=== PATIENT | male | born 1955 | race Caucasian/White ===

== ENCOUNTER 2021-12-28 20:17 | Emergency (ER) | payer MEDICARE, BC, SELFPAY ==
[2021-12-28 20:20] VITALS: BP 145/96; PULSE 79; RESP 16; O2SAT 95; BMI 29.2
--- NOTE | 2021-12-28 20:32 | ED.GENADULT ---
HPI - General Adult General Chief complaint: Urogenital Problems, Male <Bertha Bray MD - Last Filed: 12/28/21 21:15> Stated complaint: bowel/urinary problem <Bertha Bray MD - Last Filed: 12/28/21 21:15> Time Seen by Provider: 12/28/21 20:21 <Bertha Bray MD - Last Filed: 12/28/21 21:15> History of Present Illness HPI narrative: 56-year-old male coming in today with gross hematuria. He states that he had a cystoscopy earlier today at [facility] secondary to microscopic hematuria. He is on Xarelto which he stopped 48 hours ago. He was at home after the procedure doing well when all the sudden he started having john blood come out of his penis. He denies any abdominal pain, but states that after the procedure his penis is sore. Denies any systemic symptoms. He is not dizzy or lightheaded. No chest pain or shortness of breath. He was told that the cystoscopy was clear and that no biopsies were taken. <Bertha Bray MD - Last Filed: 12/28/21 21:15> Related Data Home medications: Home Medications Medication Instructions Recorded Confirmed lisinopril 10 mg tablet mg 12/28/21 metoprolol succinate 25 mg mg PO 12/28/21 tablet,extended release 24 hr rivaroxaban 20 mg tablet (Xarelto) mg 12/28/21 rosuvastatin 40 mg tablet mg 12/28/21 tadalafil 5 mg tablet mg 12/28/21 tamsulosin 0.4 mg capsule mg PO 12/28/21 <Bertha Bray MD - Last Filed: 12/28/21 21:15> Allergies/adverse reactions: Allergies Allergy/AdvReac Type Severity Reaction Status Date / Time No Known Drug Allergies Allergy Verified 12/28/21 20:23 <Bertha Bray MD - Last Filed: 12/28/21 21:15> Review of Systems Status of ROS: Reports: 10 or more systems reviewed and unremarkable except as noted in History and below <Bertha Bray MD - Last Filed: 12/28/21 21:15> Exam Narrative: Exam Narrative: Overweight, well-developed patient in no acute distress. Alert and oriented. Answers questions appropriately. Mood and affect are appropriate. Thoughts are goal oriented and rational. No tangential or magical thinking noted. Patient speaks in full sentences without needing to catch his breath. HEENT: Normocephalic atraumatic. Pupils are equally round reactive to light. Extraocular muscles are intact. Conjunctivae are moist without any icterus noted. Cardiovascular: Heart is regular rhythm, slightly tachycardic. S1 and S2 are present without any murmurs. Lungs: Clear to auscultation bilaterally no wheezes rhonchi or rales are appreciated. Abdomen: Soft and nontender nondistended with normal bowel sounds. Extremities: Bilateral lower extremities are without edema. Skin: Well perfused without any obvious rashes. : Blood at the tip of the penis in the urethral meatus. <Bertha Bray MD - Last Filed: 12/28/21 21:15> Const: Vital Signs, click to edit/add: Vital Signs - 24 hr 12/28/21 20:20 Pulse Rate [Left P ulse Oximeter] 79 Respiratory Rate 16 Blood Pressure [Le ft Upper Arm] 145/96 H Pulse Oximetry 95 Oxygen Delivery Me thod Room Air <Bertha Bray MD - Last Filed: 12/28/21 21:15> Vital Signs, click to edit/add: Vital Signs - 24 hr 12/28/21 20:20 Pulse Rate [Left P ulse Oximeter] 79 Respiratory Rate 16 Blood Pressure [Le ft Upper Arm] 145/96 H Pulse Oximetry 95 Oxygen Delivery Me thod Room Air <Cr Valdes MD - Last Filed: 12/28/21 23:03> Course Course Hospital Course: IV established. Rivera was placed with continuous bladder irrigation. Care will be transferred to oncoming physician. <Bertha Bray MD - Last Filed: 12/28/21 21:15> Reevaluation(s) Reevaluation #1: 9:30 PM: patient was signed out to Dr. Lucio MARTÍNEZ, please see Dr. Bray's note for HPI and physical exam. Patient is to receive continous bladder irrigation with 3 liter bag to clear the urine. patient is doing well. <Cr Valdes MD - Last Filed: 12/28/21 23:03> Reevaluation #2: Rivera catheter clamped at this time. patient doing well. <Cr Valdes MD - Last Filed: 12/28/21 23:03> Time: 22:00 <Cr Valdes MD - Last Filed: 12/28/21 23:03> Reevaluation #3: Patient is doing well, urine has cleared, plan would be to discharge. Patient is to return back to [place] on Saturday, plan to keep Rivera catheter in place overnight, appointment was made at [facility] to see Dr. Keturah MARTÍNEZ at 11:30 AM tomorrow. All questions answered. <Cr Valdes MD - Last Filed: 12/28/21 23:03> Time: 23:01 <Cr Valdes MD - Last Filed: 12/28/21 23:03> Vital Signs Vital signs: Initial Vital Signs Pulse Rate 79 12/28/21 20:20 Pulse Rhythm 12/28/21 20:20 Pulse Strength 3+ Normal 12/28/21 20:20 Respiratory Rate 16 12/28/21 20:20 Blood Pressure 145/96 H 12/28/21 20:20 Blood Pressure Mean 112 12/28/21 20:20 Pulse Oximetry 95 12/28/21 20:20 Oxygen Delivery Method 12/28/21 20:20 Vital Signs Pulse Rate 79 12/28/21 20:20 Respiratory Rate 16 12/28/21 20:20 Blood Pressure 145/96 H 12/28/21 20:20 Pulse Oximetry 95 12/28/21 20:20 Oxygen Delivery Method 12/28/21 20:20 Pulse Rate 79 12/28/21 20:20 Respiratory Rate 16 12/28/21 20:20 Blood Pressure 145/96 H 12/28/21 20:20 Pulse Oximetry 95 12/28/21 20:20 Oxygen Delivery Method 12/28/21 20:20 <Bertha Bray MD - Last Filed: 12/28/21 21:15> Initial Vital Signs Pulse Rate 79 12/28/21 20:20 Pulse Rhythm 12/28/21 20:20 Pulse Strength 3+ Normal 12/28/21 20:20 Respiratory Rate 16 12/28/21 20:20 Blood Pressure 145/96 H 12/28/21 20:20 Blood Pressure Mean 112 12/28/21 20:20 Pulse Oximetry 95 12/28/21 20:20 Oxygen Delivery Method 12/28/21 20:20 Vital Signs Pulse Rate 79 12/28/21 20:20 Respiratory Rate 16 12/28/21 20:20 Blood Pressure 145/96 H 12/28/21 20:20 Pulse Oximetry 95 12/28/21 20:20 Oxygen Delivery Method 12/28/21 20:20 Pulse Rate 79 12/28/21 20:20 Respiratory Rate 16 12/28/21 20:20 Blood Pressure 145/96 H 12/28/21 20:20 Pulse Oximetry 95 12/28/21 20:20 Oxygen Delivery Method 12/28/21 20:20 <Cr Valdes MD - Last Filed: 12/28/21 23:03> Medical Decision Making Lab Data Labs: Lab Results 12/28/21 12/28/21 Range/Units 20:22 20:22 WBC 8.59 (4.50-11.00) K/uL RBC 4.71 (4.30-5.90) m/uL Hgb 15.1 (13.5-17.5) gm/dL Hct 45.0 (37.0-53.0) % MCV 96 (80-100) fL MCH 32 (26-34) pg MCHC 34 (32-36) gm/dL RDW Coeff of Sesar 12.5 (11.5-15.5) % Plt Count 161 (140-440) K/uL Neut % (Auto) 52.3 (42.0-72.0) % Lymph % (Auto) 35.2 (20-44) % [place] % (Auto) 10.6 (0.0-11.0) % Eos % (Auto) 1.4 (0.0-7.0) % Baso % (Auto) 0.3 (0.0-3.0) % Neut # (Auto) 4.49 (1.7-7.0) K/uL Lymph # (Auto) 3.02 H (0.90-2.90) K/uL [place] # (Auto) 0.90 (0.00-0.90) K/UL Eos # (Auto) 0.12 (0.00-0.50) K/uL Baso # (Auto) 0.03 (0.00-0.30) K/uL Abs Immat Gran (auto) 0.02 (0.00-0.30) K/uL Sodium 138 (135-149) mmol/L Potassium 3.5 L (3.6-5.1) mmol/L Chloride 100 (96-114) mmol/L Carbon Dioxide 28 (20-32) mmol/L BUN 15 (7-30) mg/dL Creatinine 0.9 (0.5-1.5) mg/dL Estimated Creat Clear 78.68 Estimated GFR 94 ml/min Glucose 94 (60-115) mg/dL Calcium 9.1 (8.4-10.6) mg/dL <Bertha Bray MD - Last Filed: 12/28/21 21:15> Lab Results 12/28/21 12/28/21 Range/Units 20:22 20:22 WBC 8.59 (4.50-11.00) K/uL RBC 4.71 (4.30-5.90) m/uL Hgb 15.1 (13.5-17.5) gm/dL Hct 45.0 (37.0-53.0) % MCV 96 (80-100) fL MCH 32 (26-34) pg MCHC 34 (32-36) gm/dL RDW Coeff of Sesar 12.5 (11.5-15.5) % Plt Count 161 (140-440) K/uL Neut % (Auto) 52.3 (42.0-72.0) % Lymph % (Auto) 35.2 (20-44) % [place] % (Auto) 10.6 (0.0-11.0) % Eos % (Auto) 1.4 (0.0-7.0) % Baso % (Auto) 0.3 (0.0-3.0) % Neut # (Auto) 4.49 (1.7-7.0) K/uL Lymph # (Auto) 3.02 H (0.90-2.90) K/uL [place] # (Auto) 0.90 (0.00-0.90) K/UL Eos # (Auto) 0.12 (0.00-0.50) K/uL Baso # (Auto) 0.03 (0.00-0.30) K/uL Abs Immat Gran (auto) 0.02 (0.00-0.30) K/uL Sodium 138 (135-149) mmol/L Potassium 3.5 L (3.6-5.1) mmol/L Chloride 100 (96-114) mmol/L Carbon Dioxide 28 (20-32) mmol/L BUN 15 (7-30) mg/dL Creatinine 0.9 (0.5-1.5) mg/dL Estimated Creat Clear 78.68 Estimated GFR 94 ml/min Glucose 94 (60-115) mg/dL Calcium 9.1 (8.4-10.6) mg/dL <Cr Valdes MD - Last Filed: 12/28/21 23:03> Discharge Plan Discharge Clinical Impression: Rivera catheter in place, Gross hematuria, H/O cystoscopy <Bertha Bray MD - Last Filed: 12/28/21 21:15> Patient Disposition: Home, Self-Care <Bertha Bray MD - Last Filed: 12/28/21 21:15> Condition: Improved <Bertha Bray MD - Last Filed: 12/28/21 21:15> Instructions: Rivera Catheter Placement and Care (ED) <Bertha Bray MD - Last Filed: 12/28/21 21:15> Additional Instructions: To follow up tomorrow at [facility] at 11:30 AM for ED follow up and rivera catheter removal. Appointment is made with Dr. Keturah MARTÍNEZ. <Bertha Bray MD - Last Filed: 12/28/21 21:15> Prescriptions: No Action tamsulosin 0.4 mg capsule PO lisinopril 10 mg tablet metoprolol succinate 25 mg tablet extended release 24 hr PO rosuvastatin 40 mg tablet tadalafil 5 mg tablet Label Comments: take 1 tablet by mouth once daily Xarelto 20 mg tablet <Bertha Bray MD - Last Filed: 12/28/21 21:15> Stand Alone Forms: My[facility] Info Instructions <Bertha Bray MD - Last Filed: 12/28/21 21:15>
[2021-12-28 20:34] LABS: Basophils Absolute Auto 0.03 K/uL (0.00-0.30); Basophils Percent Auto 0.3 % (0.0-3.0); Eosinophils Absolute Auto 0.12 K/uL (0.00-0.50); Eosinophils Percent Auto 1.4 % (0.0-7.0); Hemoglobin* 15.1 gm/dL (13.5-17.5); Immature Granulocytes Abs Auto 0.02 K/uL (0.00-0.30); Lymphocytes Absolute Auto 3.02 K/uL (0.90-2.90); Lymphocytes Percent Auto 35.2 % (20-44); Mean Corpuscular HGB Conc 34 gm/dL (32-36); Mean Corpuscular Hemoglobin 32 pg (26-34); Mean Corpuscular Volume 96 fL (80-100); Monocytes Percent Auto 10.6 % (0.0-11.0); Neutrophils Absolute Auto 4.49 K/uL (1.7-7.0); Neutrophils Percent Auto 52.3 % (42.0-72.0); Platelet Count* 161 K/uL (140-440); RDW Coefficient of Variation % 12.5 % (11.5-15.5); Red Blood Count 4.71 m/uL (4.30-5.90); White Blood Count* 8.59 K/uL (4.50-11.00)
[2021-12-28 20:38] LABS: Slide Review Reflex No
[2021-12-28 20:46] LABS: Chloride* 100 mmol/L (96-114); Potassium* 3.5 mmol/L (3.6-5.1); Sodium* 138 mmol/L (135-149)
[2021-12-28 20:48] LABS: Creatinine* 0.9 mg/dL (0.5-1.5); Est. Creatinine Clearance* 78.68; Estimated Glomerular Filt Rate 94 ml/min
[2021-12-28 20:49] LABS: Blood Urea Nitrogen* 15 mg/dL (7-30); Calcium* 9.1 mg/dL (8.4-10.6); Carbon Dioxide* 28 mmol/L (20-32); Glucose* 94 mg/dL (60-115)
[2021-12-28] MEDS: HYDROmorphone 0.5 mg/0.5 ml inj IVP (20:53)
[2021-12-28 21:00] VITALS: BP 121/75; PULSE 76; RESP 16; O2SAT 97
--- NOTE | 2021-12-28 21:10 | ED.NURSE ---
pt states he did not stop coumadin until 2d ago, Updated.
[2021-12-28] MEDS: ACETAMINOPHEN 500 MG TABLET 1000 MG PO (21:25)
[2021-12-28 21:30] VITALS: BP 115/82; PULSE 79; RESP 16; O2SAT 97
--- NOTE | 2021-12-28 21:58 | ED.NURSE ---
catheter insertion, pain meds given prior, lidojet lube used, pt stated pain but no resistance on insertion. bloody with clots 150cc output, 3L NS bag flushed through, clear urine output half way throughout infusion. clamped at 2155 per MD Valdes request.
[2021-12-28 22:15] VITALS: BP 123/77; PULSE 75; RESP 16; O2SAT 98
[2021-12-28 23:21] VITALS: BP 108/72; PULSE 81; RESP 16
== END 2021-12-28 23:21 | disposition home or self-care (01) ==
PROVIDERS: Family Medicine; Emergency Provider Student in an Organized Health Care Education/Training Program
DX: R31.9 Hematuria, unspecified (principal)
CPT/HCPCS: 36415; 51702; 80048; 85025; 99283; 99284; A9270; J1170

== ENCOUNTER 2022-05-17 09:58 | Emergency (ER) | payer MEDICARE, BC, SELFPAY ==
[2022-05-17] VITALS (24 sets, daily range): BP systolic 110–162; BP diastolic 61–101; PULSE 44–64; RESP 16; TEMP 36.2–36.3; O2SAT 95–98; BMI 28.5
--- NOTE | 2022-05-17 10:34 | CRLHL7_ITS ---
For Patients: As a result of the Cures Act, medical imaging exams and procedure reports are released immediately into your electronic medical record. You may view this report before your referring provider. If you have questions, please contact your health care provider. INDICATION: CHEST PAIN TECHNIQUE: Chest 2 views COMPARISON: None FINDINGS: Postop changes CABG. Cardiomegaly. Mild tortuosity aorta. Fracture deformities of the left 7th, 8th and 9th ribs, chronic. No pulmonary edema, pleural effusion, infiltrate or pneumothorax. No fracture. IMPRESSION: No CHF. Dictated by Jefferson Arevalo MD @ 05/17/2022 11:01:23 AM (Electronically Signed)
[2022-05-17] MEDS: ASPIRIN 81 MG TAB.CHEW 324 MG PO (10:48)
[2022-05-17] MEDS: 0.9 % SODIUM CHLORIDE 1000 ml 1,000 ML IV (10:49)
[2022-05-17 10:53] LABS: Basophils Absolute Auto 0.03 K/uL (0.00-0.30); Basophils Percent Auto 0.4 % (0.0-3.0); Eosinophils Absolute Auto 0.23 K/uL (0.00-0.50); Eosinophils Percent Auto 2.7 % (0.0-7.0); Hematocrit 44.4 % (37.0-53.0); Hemoglobin* 14.8 gm/dL (13.5-17.5); Immature Granulocytes Abs Auto 0.01 K/uL (0.00-0.30); Immature Granulocytes Pct Auto 0.1 %; Lymphocytes Absolute Auto 3.24 K/uL (0.90-2.90); Lymphocytes Percent Auto 38.5 % (20-44); Mean Corpuscular HGB Conc 33 gm/dL (32-36); Mean Corpuscular Hemoglobin 32 pg (26-34); Mean Corpuscular Volume 96 fL (80-100); Monocytes Percent Auto 9.7 % (0.0-11.0); Neutrophils Absolute Auto 4.09 K/uL (1.7-7.0); Neutrophils Percent Auto 48.6 % (42.0-72.0); Platelet Count* 168 K/uL (140-440); RDW Coefficient of Variation % 12.5 % (11.5-15.5); Red Blood Count 4.62 m/uL (4.30-5.90); White Blood Count* 8.42 K/uL (4.50-11.00)
[2022-05-17 10:54] LABS: Slide Review Reflex No
[2022-05-17 11:24] LABS: Troponin, Point-of-Care* 0.03 ng/ml (0.01-0.04)
[2022-05-17 11:31] LABS: INR 1.15 (0.91-1.10); Partial Thromboplastin Time* 31 Seconds (23-33); Prothrombin Time 15.4 Seconds
[2022-05-17 11:36] LABS: Albumin* 4.4 g/dL (3.3-5.0)
[2022-05-17 11:37] LABS: D Dimer Quantitative* < 0.27 ug/ml (0.00-0.50)
[2022-05-17 11:39] LABS: Alkaline Phosphatase* 50 U/L (40-150); Aspartate Amino Transferase* 51 U/L (12-35); Bilirubin Direct* 0.2 mg/dL (0.0-0.5); Bilirubin Total* 1.2 mg/dL (0.1-1.5); Chloride* 104 mmol/L (96-114); Potassium* 3.7 mmol/L (3.6-5.1); Sodium* 137 mmol/L (135-149); Total Protein* 6.7 g/dL (6.0-8.3)
[2022-05-17 11:40] LABS: Alanine Aminotransferase* 30 U/L (4-50)
[2022-05-17 11:42] LABS: Blood Urea Nitrogen* 15 mg/dL (7-30); Carbon Dioxide* 24 mmol/L (20-32); Creatinine* 0.8 mg/dL (0.5-1.5); Estimated Glomerular Filt Rate 96 ml/min; Glucose* 92 mg/dL (60-115)
[2022-05-17 11:43] LABS: Calcium* 8.3 mg/dL (8.4-10.6)
[2022-05-17 11:44] LABS: Amphetamine Screen Urine Negative (Negative); Barbiturate Screen Urine Negative (Negative); Benzodiazepines Screen Urine Negative (Negative); Cannabinoid Screen Urine Negative (Negative); Cocaine Screen Urine Negative (Negative); Methadone Screen Urine Negative (Negative); Methamphetamines Screen Urine Negative (Negative); Opiate Screen Urine Negative (Negative); Oxycodone Screen Urine Negative (Negative); Phencyclidine Screen Urine Negative (Negative); Tricyclic Antidepressant Urine Negative (Negative)
[2022-05-17 11:49] LABS: NT Pro B Type NatriureticPept* 262 pg/mL
[2022-05-17 12:24] LABS: PCR FLU A Negative PCR FLU A (Negative); PCR FLU B Negative PCR FLU B (Negative); PCR RSV Negative PCR RSV (Negative)
[2022-05-17 12:26] LABS: SARS PCR* Negative SARS-CoV-2 (Negative)
[2022-05-17 12:35] LABS: Troponin, Point-of-Care* 0.01 ng/ml (0.01-0.04)
--- NOTE | 2022-05-17 13:47 | ED.CHESTPAIN ---
HPI - Chest Pain General Date Seen: 05/17/22 Chief Complaint: Chest Pain Stated Complaint: Chest pain, elevated HR Time Seen by Provider: 05/17/22 10:34 Source: patient and family Mode of arrival: ambulatory Limitations: no limitations History of Present Illness HPI narrative: Patient is a 67-year-old gentleman who presents here with his brother for evaluation of chest discomfort, he has specific episodes he says are tied exactly 2 PVCs that he has rule of pain, and what he describes is angina after he has the PVC. He does not have any pain in between these episodes, and denies any nausea vomiting radiation of discomfort, he has never before had that said this is a more recent phenomena. He does describe to me almost total body jolts when he has these. Feels like there is almost a light electrical pulse going through his body when he has a PVC. He has a history of atrial fibrillation with previous ablation in tells me scheduled to have another ablation at at [facility] coming up. Has a history of a previous coronary artery bypass grafting x5 done in 2000 and then a follow-up stent placed in 2012 in [place]. He is visiting here in [place] today. He did not take any nitroglycerin for the discomfort, he is taking his normal medications as directed has not missed any doses. MD complaint: chest pain Pertinent past history: coronary artery disease, [employer] and CABG Onset (ago): hour(s) Timing of current episode: episodic Prior episodes: No Onset: during rest Pain location: substernal and left chest Pain radiation: none Severity: mild Quality: shooting Relieving factors: nothing Exacerbating factors: nothing Treatment prior to arrival: none Related Data Home Medications Medication Instructions Recorded Confirmed lisinopril 10 mg tablet 10 mg PO DAILY 12/28/21 05/17/22 metoprolol succinate 25 mg 25 mg PO DAILY 12/28/21 05/17/22 tablet,extended release 24 hr rivaroxaban 20 mg tablet (Xarelto) 20 mg PO Q24H 12/28/21 05/17/22 rosuvastatin 40 mg tablet 40 mg PO DAILY 12/28/21 05/17/22 tadalafil 5 mg tablet 5 mg PO DAILY 12/28/21 05/17/22 albuterol sulfate 90 mcg/actuation 2 puff inhalation Q6H PRN 12/29/21 05/17/22 aerosol inhaler cyanocobalamin (vitamin B-12) 500 500 mcg PO QDAY 12/29/21 05/17/22 mcg tablet dofetilide 500 mcg capsule 500 mcg PO BID 12/29/21 05/17/22 fluticasone 250 mcg-salmeterol 50 1 inh inhalation BID PRN 12/29/21 05/17/22 mcg/dose blistr powdr for inhalation ipratropium bromide 17 1 puff inhalation QID PRN 12/29/21 05/17/22 mcg/actuation HFA aerosol inhaler (Atrovent HFA) magnesium oxide,aspartate,citr 400 mg PO DAILY 12/29/21 05/17/22 omega-3 acid ethyl esters 1 gram 1 cap PO DAILY 12/29/21 05/17/22 capsule omeprazole 20 mg capsule,delayed 20 mg PO QDAY 12/29/21 05/17/22 release tamsulosin 0.4 mg capsule 0.4 mg PO DAILY 12/29/21 05/17/22 tiotropium bromide 2.5 2 puff inhalation QAM PRN 12/29/21 05/17/22 mcg/actuation mist for inhalation (Spiriva Respimat) Allergies Allergy/AdvReac Type Severity Reaction Status Date / Time No Known Drug Allergies Allergy Verified 05/17/22 10:12 Review of Systems Status of ROS Reports: 10 or more systems reviewed and unremarkable except as noted in History and below [facility] Social History Smoking Status: Former smoker Do you use any of these nicotine containing products: None How often do you have a drink containing alcohol: never AUDIT-C Alcohol total score: 0 Non-prescribed substance use: denies use Exam Narrative Exam Narrative: Patient is speaking normally, no problem with slurring words, oriented x3. Head eyes ears nose and throat exam show equal pupils, no scleral icterus, extraocular muscles are normal, no facial droop, speech is normal, trachea normal and midline. Thyroid normal midline palpable not enlarged. Chest shows symmetrical rise bilaterally, normal auscultation with no wheezes, no increased work of breathing, no overt bruising or lesions seen, no tenderness is noted on auscultation. Heart sounds normal with no S3-S4 no murmurs clicks or gallops. Abdomen shows no obvious masses or hepatosplenomegaly, no organomegaly, bowel sounds are normal in all quadrants. No tenderness is noted also in all quadrants. Upper and lower extremities show normal power, normal range of motion, pulses are normal, sensations normal, fine motor movements are normal, pelvis is stable to rocking. Cervical spine shows normal range of motion, and palpably not tender. Thoracic spine shows normal range of motion, and palpably not tender, lumbar spine shows no tenderness to palpation percussion and is otherwise normal range of motion. Skin shows no rashes, petechiae or eccymosis. Const Vital Signs, click to edit/add: Vital Signs - 24 hr 05/17/22 10:04 05/17/22 10:09 05/17/22 10:11 Temperature 97.3 F L Pulse Rate 63 60 Pulse Rate [Right Pulse Oximeter] 64 Respiratory Rate 16 Blood Pressure 141/78 H Blood Pressure [Right Upper Arm] 162/83 H Pulse Oximetry 98 98 97 Oxygen Delivery Method Room Air 05/17/22 10:30 05/17/22 10:32 05/17/22 11:00 Temperature Pulse Rate 59 L 56 L 52 L Pulse Rate [Right Pulse Oximeter] Respiratory Rate Blood Pressure 125/74 Blood Pressure [Right Upper Arm] Pulse Oximetry 97 97 96 Oxygen Delivery Method 05/17/22 11:02 05/17/22 11:30 05/17/22 11:32 Temperature Pulse Rate 53 L 50 L 53 L Pulse Rate [Right Pulse Oximeter] Respiratory Rate Blood Pressure 124/71 142/101 H Blood Pressure [Right Upper Arm] Pulse Oximetry 96 97 97 Oxygen Delivery Method 05/17/22 12:00 05/17/22 12:02 05/17/22 12:03 Temperature Pulse Rate 54 L 51 L 52 L Pulse Rate [Right Pulse Oximeter] Respiratory Rate Blood Pressure 141/75 H Blood Pressure [Right Upper Arm] Pulse Oximetry 97 96 97 Oxygen Delivery Method 05/17/22 12:32 05/17/22 12:33 05/17/22 13:00 Temperature Pulse Rate 51 L 56 L 51 L Pulse Rate [Right Pulse Oximeter] Respiratory Rate Blood Pressure 132/71 Blood Pressure [Right Upper Arm] Pulse Oximetry 97 96 96 Oxygen Delivery Method Room Air 05/17/22 13:02 05/17/22 13:30 05/17/22 13:32 Temperature Pulse Rate 50 L 46 L 45 L Pulse Rate [Right Pulse Oximeter] Respiratory Rate 16 Blood Pressure 127/72 110/61 Blood Pressure [Right Upper Arm] Pulse Oximetry 96 95 96 Oxygen Delivery Method 05/17/22 13:33 05/17/22 14:00 05/17/22 14:02 Temperature Pulse Rate 44 L 48 L 49 L Pulse Rate [Right Pulse Oximeter] Respiratory Rate Blood Pressure 128/63 Blood Pressure [Right Upper Arm] Pulse Oximetry 96 95 95 Oxygen Delivery Method 05/17/22 14:03 05/17/22 14:30 05/17/22 14:31 Temperature 97.1 F L Pulse Rate 51 L 45 L 45 L Pulse Rate [Right Pulse Oximeter] Respiratory Rate 16 Blood Pressure 121/72 Blood Pressure [Right Upper Arm] Pulse Oximetry 97 97 96 Oxygen Delivery Method Course Course Hospital Course: Patient is seen and assessed, while I was there he had a number of PVCs with no jolting of his body, he did have this once when I was doing the ultrasound of his heart, I think these are PVCs, I do not detect a pacemaker on his chest x-ray and he does not give me a history this. Believe a lot of this may be due to anxiety although there is pre-existing coronary artery disease as documented above. His 1st 2 troponins were negative we will do a 3rd is EKGs look unchanged or otherwise normal. He feels overall better, reviewed his [place] chart do not see anything out of the ordinary with this. But would recommend him following up with his cardiology group. Ultrasound of his heart is done with the primary indication of chest pain, this is done with for views, xiphoid, parasternal long axis parasternal short axis and four-chamber view. No evidence of pericardial effusion overall motion was good, Assessment: Negative point of care ultrasound Reevaluation(s) Reevaluation #1: Appears is done well he has had no further episodes of pain he does have episodes of the little jolting which have decreased in frequency since he came in, his EKG remains really unchanged, with no acute changes, and there is no change of his troponin, given the above facts he would like to go home I have already kept him he says longer than I should have, but I explained to him that we just really needed to rule out with the pre-existing history of coronary artery disease. I think fact is he should follow up with [facility] if he has ongoing problem symptoms which we gone over in detail. Time: 15:29 Vital Signs Vital signs: Initial Vital Signs Temperature 97.3 F L 05/17/22 10:04 Temperature Source Temporal Artery Scan 05/17/22 10:04 Pulse Rate 64 05/17/22 10:04 Respiratory Rate 16 05/17/22 10:04 Blood Pressure 162/83 H 05/17/22 10:04 Blood Pressure Mean 109 05/17/22 10:04 Blood Pressure Position Supine 05/17/22 10:04 Pulse Oximetry 98 05/17/22 10:04 Oxygen Delivery Method 05/17/22 10:04 Vital Signs Temperature 97.3 F L 05/17/22 10:04 Pulse Rate 64 05/17/22 10:04 Respiratory Rate 16 05/17/22 10:04 Blood Pressure 162/83 H 05/17/22 10:04 Pulse Oximetry 98 05/17/22 10:04 Oxygen Delivery Method 05/17/22 10:04 Temperature 97.1 F L 05/17/22 14:31 Pulse Rate 45 L 05/17/22 14:31 Respiratory Rate 16 05/17/22 14:31 Blood Pressure 121/72 05/17/22 14:31 Pulse Oximetry 96 05/17/22 14:31 Oxygen Delivery Method 05/17/22 12:32 MDM - Chest Pain MDM Narrative Medical decision making narrative: During the evaluation of this patient I considered multiple differential diagnosis is. The life-threatening differential diagnosis include coronary disease/[place], pulmonary embolism, pneumothorax, pneumonia, and aortic dissection. Other differential diagnosis included but were not limited to pericarditis, myocarditis, chest wall pain, GERD, esophageal rupture, rib fracture contusion, pleurisy, as well as other etiologies. Medical Records Data Attestation: I reviewed the patient's medical records. Medical records narrative: I reviewed medical records from [facility], these discussed having a follow-up ablation, Lab Data Attestation: I reviewed the patient's lab results. Labs: Lab Results 05/17/22 05/17/22 05/17/22 Range/Units 10:05 10:05 10:05 WBC 8.42 (4.50-11.00) K/uL RBC 4.62 (4.30-5.90) m/uL Hgb 14.8 (13.5-17.5) gm/dL Hct 44.4 (37.0-53.0) % MCV 96 (80-100) fL MCH 32 (26-34) pg MCHC 33 (32-36) gm/dL RDW Coeff of Sesar 12.5 (11.5-15.5) % Plt Count 168 (140-440) K/uL Neut % (Auto) 48.6 (42.0-72.0) % Lymph % (Auto) 38.5 (20-44) % [place] % (Auto) 9.7 (0.0-11.0) % Eos % (Auto) 2.7 (0.0-7.0) % Baso % (Auto) 0.4 (0.0-3.0) % Neut # (Auto) 4.09 (1.7-7.0) K/uL Lymph # (Auto) 3.24 H (0.90-2.90) K/uL [place] # (Auto) 0.80 (0.00-0.90) K/UL Eos # (Auto) 0.23 (0.00-0.50) K/uL Baso # (Auto) 0.03 (0.00-0.30) K/uL INR 1.15 H (0.91-1.10) APTT 31 (23-33) Seconds D-Dimer Quant (PE/DVT) < 0.27 (0.00-0.50) ug/ml Sodium 137 (135-149) mmol/L Potassium 3.7 (3.6-5.1) mmol/L Chloride 104 (96-114) mmol/L Carbon Dioxide 24 (20-32) mmol/L BUN 15 (7-30) mg/dL Creatinine 0.8 (0.5-1.5) mg/dL Estimated Creat Clear 77.60 Estimated GFR 96 ml/min Glucose 92 (60-115) mg/dL Calcium 8.3 L (8.4-10.6) mg/dL Total Bilirubin (0.1-1.5) mg/dL Direct Bilirubin (0.0-0.5) mg/dL AST (12-35) U/L ALT (4-50) U/L Alkaline Phosphatase (40-150) U/L NT-Pro-B Natriuret Pep pg/mL Total Protein (6.0-8.3) g/dL Albumin (3.3-5.0) g/dL TSH (0.270-4.20) uIU/mL Urine Opiates Screen (Negative) Ur Oxycodone Screen (Negative) Urine Methadone Screen (Negative) Ur Propoxyphene Screen (Negative) Ur Barbiturates Screen (Negative) U Tricyclic Antidepress (Negative) Ur Phencyclidine Scrn (Negative) Ur Amphetamines Screen (Negative) U Methamphetamines Scrn (Negative) U Benzodiazepines Scrn (Negative) Urine Cocaine Screen (Negative) U Marijuana (THC) Screen (Negative) Ur Drug Screen Comment SARS-CoV-2 (PCR) (Negative) Influenza Type A (PCR) (Negative) Influenza Type B (PCR) (Negative) RSV (PCR) (Negative) POC Troponin I (0.01-0.04) ng/ml 05/17/22 05/17/22 05/17/22 Range/Units 10:05 10:05 10:05 WBC (4.50-11.00) K/uL RBC (4.30-5.90) m/uL Hgb (13.5-17.5) gm/dL Hct (37.0-53.0) % MCV (80-100) fL MCH (26-34) pg MCHC (32-36) gm/dL RDW Coeff of Sesar (11.5-15.5) % Plt Count (140-440) K/uL Neut % (Auto) (42.0-72.0) % Lymph % (Auto) (20-44) % [place] % (Auto) (0.0-11.0) % Eos % (Auto) (0.0-7.0) % Baso % (Auto) (0.0-3.0) % Neut # (Auto) (1.7-7.0) K/uL Lymph # (Auto) (0.90-2.90) K/uL [place] # (Auto) (0.00-0.90) K/UL Eos # (Auto) (0.00-0.50) K/uL Baso # (Auto) (0.00-0.30) K/uL INR (0.91-1.10) APTT (23-33) Seconds D-Dimer Quant (PE/DVT) (0.00-0.50) ug/ml Sodium (135-149) mmol/L Potassium (3.6-5.1) mmol/L Chloride (96-114) mmol/L Carbon Dioxide (20-32) mmol/L BUN (7-30) mg/dL Creatinine (0.5-1.5) mg/dL Estimated Creat Clear Estimated GFR ml/min Glucose (60-115) mg/dL Calcium (8.4-10.6) mg/dL Total Bilirubin 1.2 (0.1-1.5) mg/dL Direct Bilirubin 0.2 (0.0-0.5) mg/dL AST 51 H (12-35) U/L ALT 30 (4-50) U/L Alkaline Phosphatase 50 (40-150) U/L NT-Pro-B Natriuret Pep 262 pg/mL Total Protein 6.7 (6.0-8.3) g/dL Albumin 4.4 (3.3-5.0) g/dL TSH (0.270-4.20) uIU/mL Urine Opiates Screen (Negative) Ur Oxycodone Screen (Negative) Urine Methadone Screen (Negative) Ur Propoxyphene Screen (Negative) Ur Barbiturates Screen (Negative) U Tricyclic Antidepress (Negative) Ur Phencyclidine Scrn (Negative) Ur Amphetamines Screen (Negative) U Methamphetamines Scrn (Negative) U Benzodiazepines Scrn (Negative) Urine Cocaine Screen (Negative) U Marijuana (THC) Screen (Negative) Ur Drug Screen Comment SARS-CoV-2 (PCR) (Negative) Influenza Type A (PCR) (Negative) Influenza Type B (PCR) (Negative) RSV (PCR) (Negative) POC Troponin I 0.03 (0.01-0.04) ng/ml 05/17/22 05/17/22 05/17/22 Range/Units 10:35 10:35 11:26 WBC (4.50-11.00) K/uL RBC (4.30-5.90) m/uL Hgb (13.5-17.5) gm/dL Hct (37.0-53.0) % MCV (80-100) fL MCH (26-34) pg MCHC (32-36) gm/dL RDW Coeff of Sesar (11.5-15.5) % Plt Count (140-440) K/uL Neut % (Auto) (42.0-72.0) % Lymph % (Auto) (20-44) % [place] % (Auto) (0.0-11.0) % Eos % (Auto) (0.0-7.0) % Baso % (Auto) (0.0-3.0) % Neut # (Auto) (1.7-7.0) K/uL Lymph # (Auto) (0.90-2.90) K/uL [place] # (Auto) (0.00-0.90) K/UL Eos # (Auto) (0.00-0.50) K/uL Baso # (Auto) (0.00-0.30) K/uL INR (0.91-1.10) APTT (23-33) Seconds D-Dimer Quant (PE/DVT) (0.00-0.50) ug/ml Sodium (135-149) mmol/L Potassium (3.6-5.1) mmol/L Chloride (96-114) mmol/L Carbon Dioxide (20-32) mmol/L BUN (7-30) mg/dL Creatinine (0.5-1.5) mg/dL Estimated Creat Clear Estimated GFR ml/min Glucose (60-115) mg/dL Calcium (8.4-10.6) mg/dL Total Bilirubin (0.1-1.5) mg/dL Direct Bilirubin (0.0-0.5) mg/dL AST (12-35) U/L ALT (4-50) U/L Alkaline Phosphatase (40-150) U/L NT-Pro-B Natriuret Pep pg/mL Total Protein (6.0-8.3) g/dL Albumin (3.3-5.0) g/dL TSH 1.490 (0.270-4.20) uIU/mL Urine Opiates Screen Negative (Negative) Ur Oxycodone Screen Negative (Negative) Urine Methadone Screen Negative (Negative) Ur Propoxyphene Screen Negative (Negative) Ur Barbiturates Screen Negative (Negative) U Tricyclic Antidepress Negative (Negative) Ur Phencyclidine Scrn Negative (Negative) Ur Amphetamines Screen Negative (Negative) U Methamphetamines Scrn Negative (Negative) U Benzodiazepines Scrn Negative (Negative) Urine Cocaine Screen Negative (Negative) U Marijuana (THC) Screen Negative (Negative) Ur Drug Screen Comment See Note SARS-CoV-2 (PCR) Negative SARS-CoV-2 (Negative) Influenza Type A (PCR) Negative PCR FLU A (Negative) Influenza Type B (PCR) Negative PCR FLU B (Negative) RSV (PCR) Negative PCR RSV (Negative) POC Troponin I (0.01-0.04) ng/ml 05/17/22 05/17/22 Range/Units 12:09 14:05 WBC (4.50-11.00) K/uL RBC (4.30-5.90) m/uL Hgb (13.5-17.5) gm/dL Hct (37.0-53.0) % MCV (80-100) fL MCH (26-34) pg MCHC (32-36) gm/dL RDW Coeff of Sesar (11.5-15.5) % Plt Count (140-440) K/uL Neut % (Auto) (42.0-72.0) % Lymph % (Auto) (20-44) % [place] % (Auto) (0.0-11.0) % Eos % (Auto) (0.0-7.0) % Baso % (Auto) (0.0-3.0) % Neut # (Auto) (1.7-7.0) K/uL Lymph # (Auto) (0.90-2.90) K/uL [place] # (Auto) (0.00-0.90) K/UL Eos # (Auto) (0.00-0.50) K/uL Baso # (Auto) (0.00-0.30) K/uL INR (0.91-1.10) APTT (23-33) Seconds D-Dimer Quant (PE/DVT) (0.00-0.50) ug/ml Sodium (135-149) mmol/L Potassium (3.6-5.1) mmol/L Chloride (96-114) mmol/L Carbon Dioxide (20-32) mmol/L BUN (7-30) mg/dL Creatinine (0.5-1.5) mg/dL Estimated Creat Clear Estimated GFR ml/min Glucose (60-115) mg/dL Calcium (8.4-10.6) mg/dL Total Bilirubin (0.1-1.5) mg/dL Direct Bilirubin (0.0-0.5) mg/dL AST (12-35) U/L ALT (4-50) U/L Alkaline Phosphatase (40-150) U/L NT-Pro-B Natriuret Pep pg/mL Total Protein (6.0-8.3) g/dL Albumin (3.3-5.0) g/dL TSH (0.270-4.20) uIU/mL Urine Opiates Screen (Negative) Ur Oxycodone Screen (Negative) Urine Methadone Screen (Negative) Ur Propoxyphene Screen (Negative) Ur Barbiturates Screen (Negative) U Tricyclic Antidepress (Negative) Ur Phencyclidine Scrn (Negative) Ur Amphetamines Screen (Negative) U Methamphetamines Scrn (Negative) U Benzodiazepines Scrn (Negative) Urine Cocaine Screen (Negative) U Marijuana (THC) Screen (Negative) Ur Drug Screen Comment SARS-CoV-2 (PCR) (Negative) Influenza Type A (PCR) (Negative) Influenza Type B (PCR) (Negative) RSV (PCR) (Negative) POC Troponin I 0.01 0.01 (0.01-0.04) ng/ml ECG Data Attestation: I personally reviewed and interpreted this ECG as follows: ECG interpretation date: 05/17/22 Prior ECG tracings: available for review Interpretation: EKGs shows the rightward axis, normal sinus rhythm, no acute ST wave changes occasional PVCs noted Discharge Plan Discharge Clinical Impression: Chest pain, Premature ventricular beats Patient Disposition: Home w/ Parent or Adult Condition: Stable Instructions: Chest Pain (DC) Additional Instructions: Home rest follow-up cardiology at [place] if ongoing signs and symptoms, reassuring cardiac enzymes here EKG and other heart testing did not show any acute abnormality. I am not sure what to make of the little jolt that you are having. Return if worsening signs and symptoms Prescriptions: No Action omega-3 acid ethyl esters 1 gram capsule 1 cap PO DAILY fluticasone propion-salmeterol 250-50 mcg/dose blister with device 1 inh inhalation BID PRN omeprazole 20 mg capsule,delayed release(DR/EC) 20 mg PO QDAY Spiriva Respimat 2.5 mcg/actuation mist 2 puff inhalation QAM PRN dofetilide 500 mcg capsule 500 mcg PO BID Atrovent HFA 17 mcg/actuation HFA aerosol inhaler 1 puff inhalation QID PRN magnesium oxide,aspartate,citr 400 mg magnesium capsule 400 mg PO DAILY cyanocobalamin (vitamin B-12) 500 mcg tablet 500 mcg PO QDAY albuterol sulfate 90 mcg/actuation HFA aerosol inhaler 2 puff inhalation Q6H PRN lisinopril 10 mg tablet 10 mg PO DAILY metoprolol succinate 25 mg tablet extended release 24 hr 25 mg PO DAILY rosuvastatin 40 mg tablet 40 mg PO DAILY tadalafil 5 mg tablet 5 mg PO DAILY Label Comments: take 1 tablet by mouth once daily Xarelto 20 mg tablet 20 mg PO Q24H tamsulosin 0.4 mg capsule 0.4 mg PO DAILY Follow Up/Referrals: Provider,Not a Local [Primary Care Provider] - Stand Alone Forms: [facility] Info Instructions
--- NOTE | 2022-05-17 14:07 | ED.NURSE ---
Patient reports that the occurrence of chest pain is only happening every 15 minutes and only for 1-2 beats instead of every 10-15 minutes for 3-4 beats. Feels things have improved. Patients heart rate has been in the 40s-50s for part of his stay. MD is aware and no interventions at this time.
[2022-05-17 14:39] LABS: Troponin, Point-of-Care* 0.01 ng/ml (0.01-0.04)
== END 2022-05-17 15:00 | disposition home or self-care (01) ==
PROVIDERS: Emergency Provider Family Medicine
DX: R07.9 Chest pain, unspecified (principal); I49.3 Ventricular premature depolarization
CPT/HCPCS: 36415; 71046; 80048; 80076; 80306; 83880; 84443; 84484; 85025; 85379; 85610; 85730; 87502; 87634; 87635; 93005; 99285; A9270; J7030

== ENCOUNTER 2024-07-12 12:18 | Outpatient (CLI) | payer MEDICARE, BC, SELFPAY ==
[2024-07-12 12:44] LABS: Basophils Absolute Auto 0.03 K/uL (0.00-0.30); Basophils Percent Auto 0.4 % (0.0-3.0); Eosinophils Absolute Auto 0.19 K/uL (0.00-0.50); Eosinophils Percent Auto 2.5 % (0.0-7.0); Hematocrit 39.7 % (37.0-53.0); Hemoglobin* 12.7 gm/dL (13.5-17.5); Immature Granulocytes Abs Auto 0.01 K/uL (0.00-0.30); Immature Granulocytes Pct Auto 0.1 %; Lymphocytes Absolute Auto 2.64 K/uL (0.90-2.90); Lymphocytes Percent Auto 35.3 % (20-44); Mean Corpuscular HGB Conc 32 gm/dL (32-36); Mean Corpuscular Hemoglobin 31 pg (26-34); Mean Corpuscular Volume 96 fL (80-100); Monocytes Percent Auto 9.4 % (0.0-11.0); Neutrophils Percent Auto 52.3 % (42.0-72.0); Platelet Count* 332 K/uL (140-440); RDW Coefficient of Variation % 16.3 % (11.5-15.5); Red Blood Count 4.13 m/uL (4.30-5.90); White Blood Count* 7.47 K/uL (4.50-11.00)
[2024-07-12 12:49] LABS: Slide Review Reflex No
== END 2024-07-12 12:19 | disposition home or self-care (01) ==
LOC: LAB 12:23
PROVIDERS: Visit Provider Internal Medicine Gastroenterology
DX: K62.5 Hemorrhage of anus and rectum (principal); K55.20 Angiodysplasia of colon without hemorrhage
CPT/HCPCS: 36415; 85025